=== PATIENT | male | born 1965 | race Caucasian/White ===

== ENCOUNTER → 2019-12-13 | Outpatient (REF) | payer SELFPAY | LOC: M LAB REF 17:53 | PROVIDERS: ATTEND Physician Assistant | DX: R19.7 Diarrhea, unspecified (principal) ==

== ENCOUNTER 2021-06-21 15:18 | Emergency (ER) | payer OTHER, SELFPAY ==
[2021-06-21 15:55] LABS: BASO # 0.1 10^3/uL (0.0-0.2); BASO % 0.7 % (0.0-1.0); EOS # 0.2 10^3/uL (0.0-0.5); HEMATOCRIT 47.7 % (42.0-52.0); HEMOGLOBIN 16.1 g/dl (13.5-17.5); LYMPH # 3.1 10^3/uL (1.5-5.0); LYMPH % 38.7 % (24.0-44.0); MEAN CORPUSCULAR HEMOGLOBIN 33.7 pg (27.0-33.0); MEAN CORPUSCULAR HGB CONC 33.8 g/dl (32.0-36.5); MEAN CORPUSCULAR VOLUME 99.8 fl (80.0-96.0); MONO # 0.8 10^3/uL (0.0-0.8); MONO % 9.9 % (2.0-8.0); NEUTROPHILS # 3.9 10^3/uL (1.5-8.5); NEUTROPHILS % 48.3 % (36.0-66.0); PLATELET COUNT, AUTOMATED 259 10^3/uL (150-450); RED BLOOD COUNT 4.78 10^6/uL (4.30-6.10); WHITE BLOOD COUNT 8.1 10^3/uL (4.0-10.0)
--- NOTE | 2021-06-21 16:06 | REPVR ---
PROCEDURE INFORMATION: Exam: CT Head Without Contrast Exam date and time: 06/21/2021 3:30 PM Age: 56 years old Clinical indication: Injury or trauma; Other: [place]; Blunt trauma (contusions or hematomas) TECHNIQUE: Imaging protocol: Computed tomography of the head without contrast. Radiation optimization: All CT scans at this facility use at least one of these dose optimization techniques: automated exposure control; mA and/or kV adjustment per patient size (includes targeted exams where dose is matched to clinical indication); or iterative reconstruction. COMPARISON: No relevant prior studies available. FINDINGS: Brain: There is no acute cortical infarction, intracranial hemorrhage or mass. Cerebral ventricles: No ventriculomegaly. Paranasal sinuses: Visualized sinuses are unremarkable. No fluid levels. Mastoid air cells: Visualized mastoid air cells are well aerated. Bones/joints: Unremarkable. No acute fracture. Soft tissues: Unremarkable. IMPRESSION: No acute intracranial findings. Electronically signed by: Rae Alvarenga On 06/21/2021 16:06:28 PM
--- NOTE | 2021-06-21 16:11 | REPVR ---
PROCEDURE INFORMATION: Exam: CT Cervical Spine Without Contrast Exam date and time: 06/21/2021 3:30 PM Age: 56 years old Clinical indication: Injury or trauma; Other: [place]; Blunt trauma TECHNIQUE: Imaging protocol: Computed tomography images of the cervical spine without contrast. Radiation optimization: All CT scans at this facility use at least one of these dose optimization techniques: automated exposure control; mA and/or kV adjustment per patient size (includes targeted exams where dose is matched to clinical indication); or iterative reconstruction. COMPARISON: No relevant prior studies available. FINDINGS: Bones/joints: Normal alignment. No acute fracture or dislocation. Discs/Spinal canal/Neural foramina: There is mild to moderate spinal canal stenosis at C6-C7 due to bony proliferation of the vertebral body endplates without significant stenosis or neural foraminal narrowing in the remainder of the cervical spine. Lungs: Lung apices are unremarkable. Soft tissues: Unremarkable. IMPRESSION: No acute fracture or dislocation in the cervical spine. Electronically signed by: Rae Alvarenga On 06/21/2021 16:11:41 PM
[2021-06-21 16:20] LABS: OSMOLALITY SERUM 338 MOSM/KG (275-295)
[2021-06-21] MEDS ORDERED: NS 1,000 ML IV SCH (16:25)
[2021-06-21 16:26] LABS: ACETAMINOPHEN LEVEL < 2.0 UG/ML (10.0-30.0); ALBUMIN 3.7 GM/DL (3.2-5.2); ALT/SGPT 31 U/L (12-78); BILIRUBIN,DIRECT 0.1 MG/DL (0.0-0.2); BILIRUBIN,TOTAL 0.3 MG/DL (0.2-1.0); BLOOD UREA NITROGEN 22 MG/DL (7-18); CALCIUM LEVEL 8.9 MG/DL (8.5-10.1); CARBON DIOXIDE LEVEL 25 MEQ/L (21-32); CHLORIDE LEVEL 109 MEQ/L (98-107); ETHYL ALCOHOL (ETHANOL) 0.206 % (0.000-0.010); GLOMERULAR FILTRATION RATE > 60.0 (>56); GLUCOSE, FASTING 95 MG/DL (70-100); POTASSIUM SERUM 3.5 MEQ/L (3.5-5.1); SALICYLATE LEVEL 3.2 MG/DL (5.0-30.0); SODIUM LEVEL 141 MEQ/L (136-145); TOTAL PROTEIN 7.4 GM/DL (6.4-8.2)
[2021-06-21 16:45] VITALS: BP 140/76
--- NOTE | 2021-06-21 16:50 | REP ---
INDICATION: altered. COMPARISON: None. TECHNIQUE: AP portable chest image was obtained. FINDINGS: There is basilar predominant reticulonodular pulmonary disease bilaterally. This could be atelectasis or pneumonia. The heart size is normal. IMPRESSION: Atelectasis or pneumonia as described. <Electronically signed by Dario Chahal > 06/21/21 [id number]
--- NOTE | 2021-06-21 17:28 | ECGEPIP ---
[facility] - ED Test Date: 2021-06-21 Pat Name: LINDEN SHRESTHA Department: Room: - Gender: Male Diet Technician Registered: JENNIFER : [id number] Requested By: Suyapa Pope Order Number: [id number] Reading MD: Suyapa Pope Measurements Intervals [place] Rate: 48 P: 42 NE: 182 QRS: 69 QRSD: 124 T: 56 QT: 440 QTc: 393 Interpretive Statements Sinus bradycardia with sinus arrhythmia Right bundle branch block NSTTW abnormalities No prior Electronically Signed on 06-21-2021 17:28:04 EST by Suyapa Pope
[2021-06-21 17:50] LABS: RSV AMPLIFICATION NEGATIVE (NEGATIVE)
[2021-06-21 18:19] LABS: CK-MB VALUE MASS < 1.0 NG/ML (<3.6); CPK CREATINE PHOSPHOKINASE 62 U/L (39-308); MB/CK RELATIVE INDEX 1.61 (< OR =4)
== END 2021-06-21 18:31 | disposition left against medical advice (07) ==
LOC: M ED 15:18
DX: R55 Syncope and collapse (principal); F10.120 Alcohol abuse with intoxication, uncomplicated; Z53.9 Procedure and treatment not carried out, unspecified reason; R91.8 Other nonspecific abnormal finding of lung field; R94.31 Abnormal electrocardiogram [ECG] [EKG]

== ENCOUNTER → 2021-07-29 | Outpatient (REF) | LOC: M LABSMTC 12:10 | PROVIDERS: ATTEND Pediatrics | DX: Z11.52 Encounter for screening for COVID-19 (principal) ==

== ENCOUNTER 2025-05-01 06:23 | Day surgery (SDC) | payer OTHER ==
[~2025-05-01] VITALS: Ht 185.4 cm; Wt 119.2 kg
[~2025-05-01 06:23] MED LIST: PHENYLEPHRINE 10% OPHTH SOL 5ML OD PRN
[2025-05-01] MEDS: OFLOXACIN 0.3 % (OCUFLOX) OPTH SOL 5ML OD ONE (06:45)
[2025-05-01] MEDS: LIDOCAINE 3.5% 1 ML OPHTH TOPICAL GEL OU ONE (06:45)
[2025-05-01] MEDS ORDERED: MIDAZOLAM INJ 2 MG/2 ML VIAL As Ordered ONE (06:55)
[2025-05-01] MEDS: CYCLOPENTOLATE 1% OPHTH SOLN 2 ML BTL OD SCH (07:46)
[2025-05-01] MEDS: TROPICAMIDE 1% OPHTH SOLN 15ML OD SCH (07:46)
[2025-05-01] MEDS: PHENYLEPHRINE 2.5% OPHTH SOL 2ML OD SCH (07:46)
[2025-05-01] MEDS: BSS IRRIG/VANCO(10MG)/TOBRA(5MG)/EPINEPH(1:1000-0.5CC)500ML BAG-ORONLY As Ordered ONE (08:04)
[2025-05-01] MEDS: CEFUROXIME 1 MG/0.1 ML INTRACAMERAL INJ As Ordered ONE (08:04)
[2025-05-01] MEDS: LIDOCAINE 1% SDV 5 ML VIAL As Ordered ONE (08:04)
[2025-05-01 08:17] VITALS: BP 143/66; TEMP 97.2; O2SAT 96
== END 2025-05-01 08:31 | disposition home or self-care (01) ==
LOC: M SDC 06:23
PROVIDERS: ATTEND Ophthalmology
DX: H25.11 Age-related nuclear cataract, right eye (principal); F17.210 Nicotine dependence, cigarettes, uncomplicated
CPT/HCPCS: 66984; J0697; J2250; J3010

== ENCOUNTER 2025-05-29 07:07 | Day surgery (SDC) | payer OTHER ==
[~2025-05-29] VITALS: Ht 185.4 cm; Wt 119.7 kg
[~2025-05-29 07:07] MED LIST changes: +OFLOXACIN 0.3 % (OCUFLOX) OPTH SOL 5ML OS ONE; -PHENYLEPHRINE 10% OPHTH SOL 5ML OD PRN; +PHENYLEPHRINE 10% OPHTH SOL 5ML OS PRN
[2025-05-29] MEDS ORDERED: MIDAZOLAM INJ 2 MG/2 ML VIAL As Ordered ONE (07:43)
[2025-05-29] MEDS: LIDOCAINE 3.5% 1 ML OPHTH TOPICAL GEL OU ONE (08:56)
[2025-05-29] MEDS: CYCLOPENTOLATE 1% OPHTH SOLN 2 ML BTL OS SCH (08:56)
[2025-05-29] MEDS: PHENYLEPHRINE 2.5% OPHTH SOL 2ML OS SCH (08:56)
[2025-05-29] MEDS: TROPICAMIDE 1% OPHTH SOLN 15ML OS SCH (08:56)
[2025-05-29] MEDS: LIDOCAINE 1% SDV 5 ML VIAL As Ordered ONE (11:18)
[2025-05-29] MEDS: BSS IRRIG/VANCO(10MG)/TOBRA(5MG)/EPINEPH(1:1000-0.5CC)500ML BAG-ORONLY As Ordered ONE (11:18)
[2025-05-29] MEDS: CEFUROXIME 1 MG/0.1 ML INTRACAMERAL INJ As Ordered ONE (11:20)
[2025-05-29 11:30] VITALS: BP 122/64; TEMP 97.7; O2SAT 94
[2025-05-29] MEDS ORDERED: KETO1DRO OP (18:30)
[2025-05-29] MEDS ORDERED: PRED1SUS30 OP (18:30)
== END 2025-05-29 11:50 | disposition home or self-care (01) ==
LOC: M SDC 07:07
PROVIDERS: ATTEND Ophthalmology
DX: H25.12 Age-related nuclear cataract, left eye (principal); F17.210 Nicotine dependence, cigarettes, uncomplicated; Z79.52 Long term (current) use of systemic steroids; Z79.899 Other long term (current) drug therapy; Z98.41 Cataract extraction status, right eye
CPT/HCPCS: 66984; 99283; J0697; J2250; J3010

== ENCOUNTER 2025-05-29 17:57 | Emergency (ER) | payer OTHER ==
[~2025-05-29] VITALS: Ht 185.4 cm; Wt 120.0 kg
[2025-05-29 18:00] VITALS: BP 174/81; TEMP 98.7; O2SAT 96
[2025-05-29] MEDS ORDERED: KETO1DRO OP (18:30)
[2025-05-29] MEDS ORDERED: PRED1SUS30 OP (18:30)
[2025-05-29] MEDS: FLUORESCEIN OPHTH 1 MG STRIP OS ONE (20:30)
[2025-05-29] MEDS: PROPARACAINE 0.5% OPHTH SOL 15ML OS ONE (20:30)
== END 2025-05-29 21:49 | disposition home or self-care (01) ==
LOC: M ED 17:57
DX: G89.18 Other acute postprocedural pain (principal); H57.12 Ocular pain, left eye; H53.8 Other visual disturbances; Z79.52 Long term (current) use of systemic steroids; Z79.899 Other long term (current) drug therapy